=== PATIENT | male | born 1980 | race Caucasian/White ===

== ENCOUNTER 2021-09-08 10:29 | Emergency (ER) | payer OTHER ==
[~2021-09-08] VITALS: Ht 185.4 cm; Wt 104.5 kg
[~2021-09-08 10:29] MED LIST: CEPHALEXIN500 M1 PO
[2021-09-08 11:52] VITALS: BP 122/80
== END 2021-09-08 11:52 | disposition home or self-care (01) ==
LOC: ED 10:29
DX: S60.212A Contusion of left wrist, initial encounter (principal); W21.13XA Struck by golf club, initial encounter

== ENCOUNTER 2022-05-30 05:01 | Emergency (ER) | payer OTHER ==
[~2022-05-30] VITALS: Wt 104.5 kg
[2022-05-30 05:40] LABS: BASO # 0.02 K/mm3 (0.02-0.10); EOS # 0.15 K/mm3 (0.04-0.40); EOS % 1.9 % (0.0-4.0); HEMATOCRIT 48.7 % (42.0-52.0); HEMOGLOBIN 16.9 g/dL (13.5-18.0); LYMPH# 1.45 K/mm3 (1.50-4.00); MEAN CELL VOLUME 96 fl (78-100); MEAN CORPUSCULAR HEMOGLOBIN 33 pg (27-31); MEAN CORPUSCULAR HGB CONC 35 g/dL (33-37); MONO # 0.68 K/mm3 (0.20-0.80); NEU # 5.41 K/mm3 (1.40-6.50); PLATELET COUNT 187 K/mm3 (130-400); RED BLOOD COUNT 5.06 M/mm3 (4.20-5.60); RED CELL DISTRIBUTION WIDTH 12.3 % (11.5-14.5); WHITE BLOOD COUNT 7.7 K/mm3 (4.8-10.8)
[2022-05-30 05:43] LABS: ALBUMIN 4.5 g/dL (3.5-5.0); POTASSIUM 3.9 mmol/L (3.5-5.1); SODIUM 135 mmol/L (136-145)
[2022-05-30 05:46] LABS: GLUCOSE 96 mg/dL (75-110); TOTAL PROTEIN 7.2 g/dL (6.4-8.3)
[2022-05-30 05:47] LABS: CARBON DIOXIDE 20 mmol/L (22-29)
[2022-05-30 05:51] LABS: AST-SGOT 32 U/L (5-34)
[2022-05-30 05:52] LABS: ALT/SGPT 66 U/L (0-55)
[2022-05-30 05:53] LABS: LIPASE 18 U/L (8-78)
[2022-05-30 06:21] LABS: TROPONIN-I < 0.030 ng/mL (<0.030)
[2022-05-30 09:28] VITALS: BP 179/107
== END 2022-05-30 09:20 | disposition home or self-care (01) ==
LOC: ED 05:01
PROVIDERS: Physician Assistant
DX: K76.0 Fatty (change of) liver, not elsewhere classified (principal); F17.200 Nicotine dependence, unspecified, uncomplicated; Z28.310 Unvaccinated for COVID-19
CPT/HCPCS: J1885; J3010

== ENCOUNTER → 2023-01-02 | Outpatient (CLI) | payer OTHER | LOC: RAD 16:34 | DX: M25.461 Effusion, right knee (principal); M17.11 Unilateral primary osteoarthritis, right knee ==

== ENCOUNTER → 2023-05-21 | Outpatient (CLI) | payer OTHER ==
[2023-05-21 14:37] LABS: ALBUMIN 4.8 g/dL (3.5-5.0)
[2023-05-21 14:38] LABS: CALCIUM 10.5 mg/dL (8.3-10.5)
[2023-05-21 14:41] LABS: TOTAL BILIRUBIN 1.73 mg/dL (0.2-1.2)
== END ==
LOC: LAB 14:16
PROVIDERS: Nurse Practitioner
DX: E87.1 Hypo-osmolality and hyponatremia (principal)

== ENCOUNTER → 2023-05-29 | Outpatient (CLI) | payer OTHER | LOC: RAD 08:58 | DX: R17 Unspecified jaundice (principal) ==